=== PATIENT | female | born 1990 | race Caucasian/White ===

== ENCOUNTER 2019-04-22 12:57 | Emergency (ER) | payer MEDICAID ==
--- NOTE | 2019-04-22 13:13 | ER Document Report ---
ED Medical Screen (RME) - General Chief Complaint: Breathing Difficulty Stated Complaint: DIFFICULTY BREATHING Time Seen by Provider: 04/22/19 13:08 Primary Care Provider: KASIE ORANTES MD [Primary Care Provider] - Follow up as needed Mode of Arrival: Ambulatory Information source: Patient Notes: 29-year-old female presented to ED for complaint of shortness of breath since yesterday. She states her boyfriend significant other said that last night when she was breathing she breathes heavy then will shower that stopping and follow that and started again. She states all day today she has been short of breath. She states she is also noted that she has swelling to the lymph nodes on both sides of her neck for about the last 2 days. Patient is alert oriented r espirations regular and unlabored at this time. She is nontoxic in appearance. Patient states she does smoke a pack a day as well as vapes. LMP 2 weeks ago.. I have greeted and performed a rapid initial assessment of this patient. A comprehensive ED assessment and evaluation of the patient, analysis of test results and completion of medical decision making process will be conducted by an additional ED providers.. TRAVEL OUTSIDE OF THE [place] IN LAST 30 DAYS: No - Related Data Allergies/Adverse Reactions: doxycycline [Doxycycline] Allergy (Intermediate, Verified 04/22/19 12:58) GI upset duloxetine HCl [From Cymbalta] Allergy (Intermediate, Verified 04/22/19 12:58) Hives erythromycin base [Erythromycin Base] Allergy (Intermediate, Verified 04/22/19 12:58) GI upset eszopiclone [From Lunesta] Allergy (Intermediate, Verified 04/22/19 12:58) Hives tetracycline [Tetracycline] Allergy (Intermediate, Verified 04/22/19 12:58) GI upset zolpidem tartrate [From Ambien] Allergy (Intermediate, Verified 04/22/19 12:58) Hives azithromycin [Azithromycin] Allergy (Verified 04/22/19 12:58) GI upset adhesive tape [Adhesive Tape] Adverse Reaction (Verified 04/22/19 12:58) ALL MYACINS Allergy (Severe, Uncoded 04/22/19 12:58) ALL TETRACYCLINES Allergy (Severe, Uncoded 04/22/19 12:58) VOMITING, RASH Past Medical History - Past Medical History Cardiac Medical History: Denies: Hx Coronary Artery Disease, Hx Heart Attack, Hx Hypertension Pulmonary Medical History: Reports: Hx Bronchitis - @ 16 years (frequently when younger), Hx COPD - Chronic Bronchitis, Hx Pneumonia - 95% of lungs affected during pneumonia Denies: Hx Asthma Neurological Medical History: Reports: Hx Seizures - FEBRILE SEIZURES . Denies: Hx Cerebrovascular Accident Endocrine Medical History: Reports: Hx Hypothyroidism Renal/ Medical History: Reports: Hx Ovarian Cysts - pcos GI Medical History: Reports: Hx Gastroesophageal Reflux Disease Musculoskeltal Medical History: Reports Hx Arthritis - Fingers/Toes, Reports Hx Musculoskeletal Deformity, Reports Hx Musculoskeletal Trauma Psychiatric Medical History: Reports: Hx Bipolar Disorder Past Surgical History: Reports: Hx Adenoidectomy, Hx Section, Hx Orthopedic Surgery - l knee x2, Hx Tonsillectomy. Denies: Hx Hysterectomy, Hx Pacemaker - Immunizations Immunizations up to date: Yes Hx Diphtheria, Pertussis, Tetanus Vaccination: Yes Physical Exam - Vital signs Vitals: Temp Pulse Resp BP Pulse Ox 99.1 F 104 H 20 107/64 100 04/22/19 13:01 04/22/19 13:01 04/22/19 13:01 04/22/19 13:01 04/22/19 13:01 Course - Vital Signs Vital signs: Temp Pulse Resp BP Pulse Ox 99.1 F 104 H 20 107/64 100 04/22/19 13:01 04/22/19 13:01 04/22/19 13:01 04/22/19 13:01 04/22/19 13:01 Doctor's Discharge - Discharge Referrals: KASIE ORANTES MD [Primary Care Provider] - Follow up as needed
[2019-04-22] MEDS ORDERED: ACETAMINOPHEN 325 MG TABLET PO ONE (13:14)
[2019-04-22 13:47] LABS: ABSOLUTE BASOPHILS # (AUTO) 0.1 10^3/uL (0.0-0.2); ABSOLUTE EOSINOPHILS # (AUTO) 0.1 10^3/uL (0.0-0.6); ABSOLUTE LYMPHOCYTES (AUTO) 1.2 10^3/uL (0.5-4.7); ABSOLUTE MONOCYTES (AUTO) 0.9 10^3/uL (0.1-1.4); ABSOLUTE NEUT (AUTO) 11.6 10^3/uL (1.7-8.2); BASOPHILS % (AUTO) 0.4 % (0-2); EOSINOPHILS % (AUTO) 0.5 % (0-6); HEMATOCRIT 41.6 % (36.0-47.0); HEMOGLOBIN 14.3 g/dL (12.0-15.5); LYMPHOCYTES % (AUTO) 8.8 % (13-45); MEAN CORPUSCULAR HEMOGLOBIN 29.5 pg (27.0-33.4); MEAN CORPUSCULAR HGB CONC 34.3 g/dL (32.0-36.0); MEAN CORPUSCULAR VOLUME 86 fl (80-97); MONOCYTES % (AUTO) 6.8 % (3-13); PLATELET COUNT 128 10^3/uL (150-450); RED BLOOD COUNT 4.84 10^6/uL (3.72-5.28); RED CELL DISTRIBUTION WIDTH 13.9 % (11.5-14.0); SEGMENTED NEUTROPHILS % (AUTO) 83.5 % (42-78); TOTAL CELLS COUNTED % (AUTO) 100 %; WHITE BLOOD COUNT 13.9 10^3/uL (4.0-10.5)
[2019-04-22 13:52] LABS: APPEARANCE,URINE CLEAR; BILIRUBIN,URINE NEGATIVE (NEGATIVE); COLOR,URINE YELLOW; GLUCOSE, URINE NEGATIVE (NEGATIVE); KETONES,URINE NEGATIVE (NEGATIVE); LEUKOCYTE ESTERASE,URINE NEGATIVE (NEGATIVE); NITRITE,URINE NEGATIVE (NEGATIVE); PROTEIN,URINE NEGATIVE (NEGATIVE); URINE SPECIFIC GRAVITY 1.014
[2019-04-22 14:05] LABS: ALBUMIN 4.3 g/dL (3.5-5.0); ALKALINE PHOSPHATASE 50 U/L (38-126); ANION GAP 10 (5-19); ASPARTATE AMINO TRANSFERASE 14 U/L (14-36); BILIRUBIN,DIRECT 0.1 mg/dL (0.0-0.4); BILIRUBIN,TOTAL 0.4 mg/dL (0.2-1.3); BLOOD UREA NITROGEN 6 mg/dL (7-20); CALCIUM 9.7 mg/dL (8.4-10.2); CARBON DIOXIDE 30 mmol/L (22-30); CHLORIDE 101 mmol/L (98-107); GLUCOSE 104 mg/dL (75-110); POTASSIUM 3.9 mmol/L (3.6-5.0)
--- NOTE | 2019-04-22 14:13 | RADIOLOGY REPORT (SQ) ---
EXAM DESCRIPTION: CHEST 2 VIEWS COMPLETED DATE/TIME: 04/22/2019 2:03 pm REASON FOR STUDY: short of breath COMPARISON: 03/08/2013 EXAM PARAMETERS: NUMBER OF VIEWS: two views TECHNIQUE: Digital Frontal and Lateral radiographic views of the chest acquired. RADIATION DOSE: NA LIMITATIONS: none FINDINGS: LUNGS AND PLEURA: No opacities, masses or pneumothorax. No pleural effusion. MEDIASTINUM AND HILAR STRUCTURES: No masses or contour abnormalities. HEART AND VASCULAR STRUCTURES: Heart normal size. No evidence for failure. BONES: No acute findings. HARDWARE: None in the chest. OTHER: No other significant finding. IMPRESSION: No acute abnormality of the lungs. No focal airspace opacity. TECHNICAL DOCUMENTATION: JOB ID: [id number] [employer]- All Rights Reserved Reading location - IP/workstation name: [email or web address]
[2019-04-22] MEDS ORDERED: DEXAMETHASONE SOD PHOS INJ 10 MG/1 ML VIAL IM ONE (18:20)
[2019-04-22] MEDS ORDERED: AMOXICILLIN TR/POT CLAVULANATE 500-125 MG TAB PO ONE (18:20)
[2019-04-22] MEDS ORDERED: KETOROLAC TROMETHAMINE INJ/PF 30 MG/1 ML SDV IM ONE (18:22)
[2019-04-22] MEDS ORDERED: IPRATROPIUM/ALBUTEROL 0.5-2.5 MG/3 ML AMPUL NEB ONE (18:23)
--- NOTE | 2019-04-22 18:29 | ER Document Report ---
ED General - General Chief Complaint: Breathing Difficulty Stated Complaint: DIFFICULTY BREATHING Time Seen by Provider: 04/22/19 13:08 Primary Care Provider: KASIE ORANTES MD [NO LOCAL MD] - Follow up as needed Mode of Arrival: Ambulatory Notes: Healthy 29-year-old female with no significant medical problems presents emergency department chief complaint of bilateral ear pain, shortness of breath, painful cervical lymph nodes, and sore throat. Patient states that the symptoms started 2 days ago. Denies sick contacts but has 5 kids in her house. Patient denies fevers but states that she had chills last night. Patient does complain of dysphagia, denies any dizziness/lightheadedness/vertigo, denies any acute respiratory distress, denies cough or rhinorrhea, denies neck stiffness, denies chest pain, denies abdominal pain, denies nausea/vomiting/diarrhea/constipation, denies urinary symptoms. TRAVEL OUTSIDE OF THE [place] IN LAST 30 DAYS: No - Related Data Allergies/Adverse Reactions: doxycycline [Doxycycline] Allergy (Intermediate, Verified 04/22/19 12:58) GI upset duloxetine HCl [From Cymbalta] Allergy (Intermediate, Verified 04/22/19 12:58) Hives erythromycin base [Erythromycin Base] Allergy (Intermediate, Verified 04/22/19 12:58) GI upset eszopiclone [From Lunesta] Allergy (Intermediate, Verified 04/22/19 12:58) Hives tetracycline [Tetracycline] Allergy (Intermediate, Verified 04/22/19 12:58) GI upset zolpidem tartrate [From Ambien] Allergy (Intermediate, Verified 04/22/19 12:58) Hives azithromycin [Azithromycin] Allergy (Verified 04/22/19 12:58) GI upset adhesive tape [Adhesive Tape] Adverse Reaction (Verified 04/22/19 12:58) ALL MYACINS Allergy (Severe, Uncoded 04/22/19 12:58) ALL TETRACYCLINES Allergy (Severe, Uncoded 04/22/19 12:58) VOMITING, RASH Past Medical History - General Information source: Patient - Social History Smoking Status: Current Every Day Smoker Frequency of alcohol use: None Drug Abuse: None Family History: DM, Hypertension Patient has suicidal ideation: No Patient has homicidal ideation: No - Past Medical History Cardiac Medical History: Denies: Hx Coronary Artery Disease, Hx Heart Attack, Hx Hypertension Pulmonary Medical History: Reports: Hx Bronchitis - @ 16 years (frequently when younger), Hx COPD - Chronic Bronchitis, Hx Pneumonia - 95% of lungs affected during pneumonia Denies: Hx Asthma Neurological Medical History: Reports: Hx Seizures - FEBRILE SEIZURES INFANT. Denies: Hx Cerebrovascular Accident Endocrine Medical History: Reports: Hx Hypothyroidism Renal/ Medical History: Reports: Hx Ovarian Cysts - pcos GI Medical History: Reports: Hx Gastroesophageal Reflux Disease Musculoskeletal Medical History: Reports Hx Arthritis - Fingers/Toes, Reports Hx Musculoskeletal Deformity, Reports Hx Musculoskeletal Trauma Psychiatric Medical History: Reports: Hx Bipolar Disorder Past Surgical History: Reports: Hx Adenoidectomy, Hx Section, Hx Orthopedic Surgery - l knee x2, Hx Tonsillectomy. Denies: Hx Hysterectomy, Hx Pacemaker - Immunizations Immunizations up to date: Yes Hx Diphtheria, Pertussis, Tetanus Vaccination: Yes Review of Systems - Review of Systems Constitutional: See HPI EENT: See HPI Cardiovascular: See HPI Gastrointestinal: See HPI Genitourinary: See HPI Female Genitourinary: No symptoms reported Musculoskeletal: No symptoms reported Skin: No symptoms reported Hematologic/Lymphatic: No symptoms reported Neurological/Psychological: See HPI Physical Exam - Vital signs Vitals: Temp Pulse Resp BP Pulse Ox 99.1 F 104 H 20 107/64 100 04/22/19 13:01 04/22/19 13:01 04/22/19 13:01 04/22/19 13:01 04/22/19 13:01 - Notes Notes: PHYSICAL EXAMINATION: Reviewed vital signs and charting by RN GENERAL: Alert, interacts well. No acute distress. HEAD: Normocephalic, atraumatic. EYES: Pupils equal and round. Extraocular movements intact. ENT: Oral mucosa moist, tongue midline. 1+ bilateral tonsillar hypertrophy without erythema. Left TM erythematous and mildly bulging consistent with otitis media, no fluid seen behind the eardrum. NECK: Full range of motion. Trachea midline. Bilateral cervical adenopathy LUNGS: Clear to auscultation bilaterally, no wheezes, rales, or rhonchi. No respiratory distress. HEART: Regular rate and rhythm. No murmur ABDOMEN: soft, non-tender. No distention. Bowel sounds present EXTREMITIES: Moves all 4 extremities spontaneously. No edema, No cyanosis. PSYCH: Normal affect, normal mood. SKIN: Warm, dry, normal turgor. No rashes or lesions noted. Course - Re-evaluation Re-evalutation: 04/22/19 18:32 Presentation is most consistent with an acute otitis media. Clinical history as well as exam is most consistent with this diagnosis. Based on history and examination do not suspect an acute meningitis, encephalitis, peritonsillar abscess, or retropharyngeal abscess. Patient is otherwise well in appearance, no acute distress. Vitals otherwise within normal limits. The patient will be started on Augmentin twice a day for 7 days. At this time will discharge with return precautions and follow-up recommendations. Verbal discharge instructions given a the bedside to the shunt and opportunity for questions given. Medication warnings reviewed. Patient is in agreement with this plan and has verbalized understanding of return precautions and the need for primary care follow-up in the next 24-72 hours. - Vital Signs Vital signs: Temp Pulse Resp BP Pulse Ox 99.1 F 104 H 20 107/64 100 04/22/19 13:01 04/22/19 13:01 04/22/19 13:01 04/22/19 13:01 04/22/19 13:01 - Laboratory Result Diagrams: 04/22/19 13:31 04/22/19 13:31 Laboratory results interpreted by me: 04/22/19 04/22/19 04/22/19 13:31 13:31 13:31 WBC 13.9 H Plt Count 128 L Lymph % (Auto) 8.8 L Absolute Neuts (auto) 11.6 H Seg Neutrophils % 83.5 H BUN 6 L Urine Urobilinogen 2.0 H Discharge - Discharge Clinical Impression: Shortness of breath, Sore throat Left otitis media Qualifiers: Otitis media type: unspecified Qualified Code(s): H66.92 - Otitis media, unspecified, left ear Condition: Good Disposition: HOME, SELF-CARE Additional Instructions: You were seen today for ear pain and have an acute ear infection. Please take the antibiotic that has been prescribed until it is completed even if you are feeling better before you have finished all the antibiotics. You have been given a steroid to help with the inflammation here in the emergency department and also a shot of Toradol which is an NSAID similar to Motrin. Wait 6 hours before taking ibuprofen from the shot. For your pain: Take ibuprofen 600 mg and acetaminophen 1000 mg every 6 hours together as needed for pain. Return if you have worsening of your pain, loss of hearing in the affected ear, worsening facial pain, headaches, pass out, or any other symptoms that are worrisome to you. Prescriptions: Amox Tr/Potassium Clavulanate [Augmentin 875-125 Tablet] 1 tab PO BID 7 Days tablet Referrals: KASIE ORANTES MD [NO LOCAL MD] - Follow up as needed
[2019-04-22 19:30] VITALS: BP 115/60
== END 2019-04-22 19:30 | disposition home or self-care (01) ==
LOC: ER 12:57
DX: J02.9 Acute pharyngitis, unspecified (principal); H66.92 Otitis media, unspecified, left ear; H92.03 Otalgia, bilateral; R06.00 Dyspnea, unspecified; R06.02 Shortness of breath; Z88.3 Allergy status to other anti-infective agents; F17.200 Nicotine dependence, unspecified, uncomplicated
CPT/HCPCS: 36415; 84703; 85025; 80053; 81001; 71046; J3490 ×2; J1885; J1100; J7620; 94640; 96374; 96375; 99285